=== PATIENT | female | born 1990 | race Caucasian/White ===

== ENCOUNTER 2021-04-04 00:11 | Emergency (ER) | payer SELFPAY ==
[~2021-04-04] VITALS: Ht 182.9 cm; Wt 79.4 kg
[~2021-04-04 00:11] MED LIST: AZIT250 PO; HYDACE5 PO; IBUP800 PO; NORT25 PO; PROCODE120 PO
== END 2021-04-04 01:40 | disposition home or self-care (01) ==
LOC: ER 00:11
DX: S82.852A Displaced trimalleolar fracture of left lower leg, initial encounter for closed fracture (principal); Z79.899 Other long term (current) drug therapy; W18.40XA Slipping, tripping and stumbling without falling, unspecified, initial encounter
CPT/HCPCS: 73600; 73610; A9270; J2704; J7030

== ENCOUNTER 2021-04-05 14:09 | Emergency (ER) | payer OTHER ==
[~2021-04-05] VITALS: Ht 170.2 cm; Wt 104.3 kg
== END 2021-04-05 15:08 | disposition home or self-care (01) ==
LOC: ER 14:09
DX: M25.572 Pain in left ankle and joints of left foot (principal); W18.30XA Fall on same level, unspecified, initial encounter; Z79.899 Other long term (current) drug therapy
CPT/HCPCS: 73600; 99283-25

== ENCOUNTER 2021-04-06 12:20 | Day surgery (SDC) | payer OTHER ==
[~2021-04-06] VITALS: Ht 170.2 cm; Wt 104.5 kg
== END 2021-04-06 15:55 | disposition home or self-care (01) ==
LOC: ORSCSDS 12:20
DX: S82.842A Displaced bimalleolar fracture of left lower leg, initial encounter for closed fracture (principal); W18.30XA Fall on same level, unspecified, initial encounter; J45.909 Unspecified asthma, uncomplicated; E66.9 Obesity, unspecified; Z68.35 Body mass index [BMI] 35.0-35.9, adult
CPT/HCPCS: A9270; C1713; C1769; J0171; J0690; J1100; J2250; J2405; J2704; J3010

== ENCOUNTER 2024-03-04 06:13 | Day surgery (SDC) | payer OTHER, BC ==
[~2024-03-04] VITALS: Ht 172.7 cm; Wt 103.9 kg
[~2024-03-04 06:13] MED LIST changes: +Lactated Ringer's 1,000 ML IV ONE; +METO10 PO; +ONDA4ODT MM; +OXAYDO5 M1 PO; +SULTRIDS PO; +TAMS.4ER PO
[2024-03-04] MEDS ORDERED: EPINEPhrine HCl 1 MG/ML 1ML Amp ONE (06:56)
[2024-03-04] MEDS ORDERED: Ropivacaine 0.5% HCL/PF 5 MG/ML 30ML Vial ONE (06:57)
[2024-03-04] MEDS ORDERED: VENL25 PO (06:59)
[2024-03-04] MEDS ORDERED: LAMO100 PO (07:00)
[2024-03-04] MEDS ORDERED: Ondansetron HCl 2 MG / ML 2ML Vial ONE ×2 (07:12→07:37)
[2024-03-04] MEDS ORDERED: Lactated Ringer's 1,000 ML IV ONE (07:22)
--- NOTE | 2024-03-04 07:26 | NUR ---
03/04/24 0726 GUILLAUME HOWE 0710 PATIENT HAD CLEAR EMEMESIS ~100ML. PATIENT OFFERED COOL, WET FACE CLOTH AND MOUTH RINSE W/ WATER. 0716 4MG IVP ZOFRAN GIVEN, ANESTHESIA ORDER. PATIENT RESTING, STATES ALL NEEDS ARE MET AT THIS TIME. CALL LIGHT IN REACH.
[2024-03-04] MEDS ORDERED: CeFAZolin Sodium 2,000 MG VIAL ONE (07:27)
[2024-03-04] MEDS ORDERED: FentaNYL Citrate 50 MCG/ML 2 ML Injection ONE ×2 (07:30→09:46)
[2024-03-04] MEDS ORDERED: propofoL 20 ML IV ONE ×2 (07:30→08:53)
[2024-03-04] MEDS ORDERED: Midazolam HCl 1MG / ML 2ML Vial ONE (07:31)
[2024-03-04] MEDS ORDERED: Rocuronium Bromide 10 MG/ML 5ML Injection IV ONE (07:32)
[2024-03-04] MEDS ORDERED: Dexamethasone Sod Phos 10 MG/ML 1ML VIAL ONE (07:37)
[2024-03-04] MEDS ORDERED: Ketorolac Tromethamine 30mg Vial ONE ×2 (07:42→08:41)
--- NOTE | 2024-03-04 08:09 | NUR ---
03/04/24 0809 StoneValerie REMOVED AT END OF PROCDEDURE INTACT, PT TOLERATED WELL
[2024-03-04] MEDS ORDERED: Sugammadex Sodium 200 MG/2ML SDV (100 MG/ML) ONE (08:41)
--- NOTE | 2024-03-04 09:14 | NUR ---
03/04/24 0914 Carline Hewitt PT RESTING QUIETLY IN CART W/ EYES CLOSED, RESPIRATIONS NORMAL & NON-LABORED. PT DENIES PAIN/NAUSEA AT THIS TIME. VSS, ON RA. NO VISIBLE SIGNS OF DISTRESS NOTED.
--- NOTE | 2024-03-04 09:23 | NUR ---
03/04/24 0923 Carline Hewitt UPON ARRIVAL TO SDU, PT STATES SHE NEEDS TO VOID. BEDPAN PLACED AT THIS TIME.
[2024-03-04] MEDS ORDERED: Metoclopramide HCl 5MG / ML 2ML Vial ONE (09:38)
[2024-03-04 10:00] VITALS: BP 100/60
== END 2024-03-04 10:20 | disposition home or self-care (01) ==
LOC: ORSCSDS 06:13
PROVIDERS: Obstetrics & Gynecology
PROC: 0UT74ZZ Resection of Bilateral Fallopian Tubes, Percutaneous Endoscopic Approach (ICD-10-PCS; principal; 2024-03-04 07:30)
DX: Z30.2 Encounter for sterilization (principal); N80.352 Endometriosis of the left pelvic sidewall, unspecified depth; N80.3C1 Endometriosis of the right uterosacral ligament, unspecified depth; N73.6 Female pelvic peritoneal adhesions (postinfective); F32.A Depression, unspecified; F41.9 Anxiety disorder, unspecified; E66.9 Obesity, unspecified; Z68.36 Body mass index [BMI] 36.0-36.9, adult; Z79.899 Other long term (current) drug therapy
CPT/HCPCS: 88302; J0171; J0690; J1100; J1885; J2250; J2405; J2704; J2765; J2795; J3010; J7120